=== PATIENT | male | born 1975 | race Caucasian/White ===

== ENCOUNTER 2020-01-08 18:04 | Emergency (ER) | payer MEDICAID ==
[~2020-01-08] VITALS: Ht 180.3 cm; Wt 89.4 kg
[2020-01-08 18:09] VITALS: BP_SYST 132
--- NOTE | 2020-01-08 18:09 | NUR ---
Patient to ER bed 01 to gown for evaluation. Side rails up.
--- NOTE | 2020-01-08 18:09 | NUR ---
Patient came in at the urging of his girlfriend because he has been smoking methamphetamine. He is requesting ativan.
--- NOTE | 2020-01-08 18:40 | NUR ---
ER Dr. Rodriguez at bedside examining patient.
--- NOTE | 2020-01-08 18:46 | NUR ---
Patient provided contact information for [facility], [facility] for medical, and [facility].
[2020-01-08 18:53] VITALS: BP_SYST 111
--- NOTE | 2020-01-08 18:53 | NUR ---
Patient given written and verbal discharge instructions and verbalizes understanding. ER MD discussed with patient the results and treatment provided. Patient in stable condition. ID arm band removed.Patient educated on pain management and to follow up with PMD. Pain Scale 0/10. Opportunity for questions provided and answered. Medication side effect fact sheet provided.
== END 2020-01-08 18:53 | disposition home or self-care (01) ==
LOC: SED 18:04
DX: F15.10 Other stimulant abuse, uncomplicated (principal); F17.200 Nicotine dependence, unspecified, uncomplicated; Z88.0 Allergy status to penicillin
CPT/HCPCS: 99281